=== PATIENT | male | born 1945 ===

== ENCOUNTER 2021-11-29 10:29 | Day surgery (SDC) | payer MEDICARE, OTHER ==
[2021-11-29] MEDS ORDERED: Midazolam 1 MG/ML 2 ML SDV IV ONE (10:30)
[2021-11-29] MEDS ORDERED: fentaNYL 100 MCG/2 ML SDV IV ONE (10:30)
[2021-11-29] MEDS ORDERED: Lactated Ringers 1,000 ML IV PRN (10:30)
[2021-11-29] MEDS: Sodium Chloride 0.9% 10 ML Syringe FLUSH PRN (11:00)
[2021-11-29] MEDS: acetaZOLAMIDE 500 MG Cap.ER PO ONE (12:16)
== END 2021-11-29 12:35 | disposition home or self-care (01) ==
LOC: FB.SDS 10:29
PROVIDERS: ATTEND Ophthalmology
DX: H25.13 Age-related nuclear cataract, bilateral (principal); H40.1123 Primary open-angle glaucoma, left eye, severe stage; H40.1112 Primary open-angle glaucoma, right eye, moderate stage; I10 Essential (primary) hypertension; Z79.899 Other long term (current) drug therapy; F17.210 Nicotine dependence, cigarettes, uncomplicated; Z88.0 Allergy status to penicillin
CPT/HCPCS: 00142-QZ; A9270-GY; C1780; C1783; J2250; J3010; J3490

== ENCOUNTER 2021-12-27 08:57 | Day surgery (SDC) | payer MEDICARE, OTHER ==
[2021-12-27] MEDS ORDERED: fentaNYL 100 MCG/2 ML SDV IV ONE (08:58)
[2021-12-27] MEDS ORDERED: Midazolam 1 MG/ML 2 ML SDV IV ONE (08:58)
[2021-12-27] MEDS ORDERED: Sodium Chloride 0.9% 10 ML Syringe FLUSH PRN (09:00)
[2021-12-27] MEDS ORDERED: Lactated Ringers 1,000 ML IV PRN (09:00)
[2021-12-27] MEDS ORDERED: acetaZOLAMIDE 500 MG Cap.ER PO ONE (11:00)
== END 2021-12-27 11:06 | disposition home or self-care (01) ==
LOC: FB.SDS 08:57
PROVIDERS: ATTEND Ophthalmology
DX: H26.9 Unspecified cataract (principal); H40.1111 Primary open-angle glaucoma, right eye, mild stage; I10 Essential (primary) hypertension; F17.210 Nicotine dependence, cigarettes, uncomplicated; Z79.52 Long term (current) use of systemic steroids; Z79.899 Other long term (current) drug therapy; Z88.0 Allergy status to penicillin
CPT/HCPCS: 00142; 66991; A9270; C1783; J2250; J3010; J3490